=== PATIENT | male | born 1970 | race Caucasian/White ===

== ENCOUNTER → 2017-04-14 14:35 | Outpatient (CLI) | payer BC | END | disposition home or self-care (01) | LOC: D.LAB 14:35 | DX: Z30.8 Encounter for other contraceptive management (principal) ==

== ENCOUNTER → 2018-08-14 16:04 | Outpatient (CLI) | payer BC | END | disposition home or self-care (01) | LOC: D.US 15:00 | DX: N50.9 Disorder of male genital organs, unspecified (principal) ==